=== PATIENT | female | born 2000 | race African-American/Black ===

== ENCOUNTER 2020-05-05 11:18 | Inpatient (IN) ==
[2020-05-05] MEDS ORDERED: oxyCODONE/ACETAMINOPHEN 5-325 MG TABLET PO ONE (11:52)
[2020-05-05 12:49] LABS: Mucus,Urine Occasional /LPF (Occasional); Squamous Epithelial Cell,Urine Occasional /HPF (0-10)
[2020-05-05 12:51] LABS: Bilirubin,Urine Negative (Negative); Blood, Urine Negative (Negative); Glucose,Urine (UA) Negative (Negative); Ketones,Urine 100 mg/dL (Negative); Nitrite,Urine Negative (Negative); Protein,Urine 100 MG/DL; Urine Appearance Clear (Clear); Urine Color Yellow (Yellow)
[2020-05-05] MEDS ORDERED: NIFEdipine 10 MG CAPSULE PO ONE (13:11)
[2020-05-05] MEDS ORDERED: LACTATED RINGERS 1,000 ML IV ONE (13:21)
[2020-05-05] MEDS ORDERED: BUTORPHANOL 2 MG/ML VIAL IV PRN (13:21)
[2020-05-05] MEDS ORDERED: LACTATED RINGERS 1,000 ML IV SCH (13:30)
[2020-05-05] MEDS ORDERED: AMPICILLIN 2,000 MG VIAL ONE (13:35)
[2020-05-05] MEDS ORDERED: AMPICILLIN INJ 2,000 MG in SODIUM CHLORIDE 0.9% 100 ML IV ONE (13:36)
[2020-05-05] MEDS ORDERED: MEPERIDINE 50 MG/1 ML VIAL IV ONE (13:54)
[2020-05-05] MEDS: ONDANSETRON 4 MG/2 ML VIAL IV PRN ×2 (13:58→18:41)
[2020-05-05 13:59] LABS: Basophils % 0.2 % (0.0-0.8); Hematocrit 35.9 VOL% (35.7-47.0); Hemoglobin 12.1 GM/DL (12.0-16.0); Immature Granulocytes % 0.6 %; Immature Granulocytes Absolute 0.07 #; Lymphocytes # 1.3 10*3/uL (1.4-4.0); Lymphocytes % 11.4 % (21.3-54.2); Mean Corpuscular HGB Conc 33.7 GM/DL (32-36); Mean Corpuscular Volume 95.2 FL (87-102); Mean Platelet Volume 11.9 FL (9.6-12.0); Monocytes % 6.5 % (1.7-12.7); Neutrophils % 81.3 % (38.7-73.9); Platelet Count 161 T/CUMM (130-400); Red Blood Count 3.77 MC/CUMM (3.8-5.5); Red Cell Distribution Width 12.6 % (9.3-17.3); White Blood Count 11.1 T/CUMM (4-12)
[2020-05-05] MEDS ORDERED: fentaNYL 2 MCG/ROPIV 0.2% EPID 100 ML EPIDURAL SCH (14:00)
[2020-05-05] MEDS ORDERED: NALOXONE 0.4 MG/ML VIAL IV PRN (14:00)
[2020-05-05] MEDS ORDERED: ePHEDrine 50 MG/ML VIAL IV PRN (14:00)
[2020-05-05] MEDS ORDERED: CITRIC ACID/SODIUM CITRATE 30 ML UDCUP PO ONE (14:01)
[2020-05-05] MEDS ORDERED: FAMOTIDINE 20 MG/2 ML VIAL IV ONE ×2 (14:01→14:03)
[2020-05-05 14:16] LABS: Band Neutrophils 2 % (0-10); Lymphocytes 10 % (20-55); Platelet Estimate Adequate; Segmented Neutrophils 83 % (50-85); Total Cells Counted 100
[2020-05-05] MEDS ORDERED: OXYTOCIN/LR 20 UNIT/1,000 ML BAG IV ONE ×2 (15:13→17:54)
[2020-05-05] MEDS ORDERED: OXYTOCIN/LR 20 UNIT/1,000 ML BAG IV SCH (16:00)
[2020-05-05 16:28] LABS: Bilirubin,Urine Negative (Negative); Blood, Urine Negative (Negative); Glucose,Urine (UA) 50 mg/dL (Negative); Ketones,Urine 20 mg/dL (Negative); Mucus,Urine Occasional /LPF (Occasional); Nitrite,Urine Negative (Negative); Protein,Urine 30 MG/DL; Squamous Epithelial Cell,Urine Occasional /HPF (0-10); Urine Appearance CLEAR (Clear); Urine Color Yellow (Yellow); Urine Specific Gravity 1.029 (1.001-1.035)
[2020-05-05] MEDS ORDERED: TRANEXAMIC ACID 1,000 MG/10 ML VIAL ONE (17:00)
[2020-05-05] MEDS ORDERED: miSOPROStoL 200 MCG TABLET ONE (17:00)
[2020-05-05] MEDS ORDERED: METHYLERGONOVINE 0.2 MG/1 ML AMP ONE (17:01)
[2020-05-05] MEDS ORDERED: CARBOPROST TROMETHAMINE 250 MCG/ML AMP IM ONE (17:01)
[2020-05-05 17:29] LABS: Cord Arterial Blood HCO3 22.7 MMOL/L
[2020-05-05 17:32] LABS: Cord Venous Blood HCO3 24.1 MMOL/L; Cord Venous Blood PCO2 43.6 MMHG
[2020-05-05] MEDS ORDERED: AMPICILLIN INJ 1,000 MG in SODIUM CHLORIDE 0.9% 100 ML IV SCH (17:36)
[2020-05-05] MEDS ORDERED: ONDANSETRON 4 MG/2 ML VIAL IV PRN (17:54)
[2020-05-05] MEDS ORDERED: BISACODYL 10 MG SUPP RECTAL PRN (17:54)
[2020-05-05] MEDS ORDERED: WITCH HAZEL PADS 100/JAR TOP PRN (17:54)
[2020-05-05] MEDS ORDERED: MEASLES/MUMPS/RUBELLA VACCINE 0.5 ML VIAL SUBCUT ONE (17:54)
[2020-05-05] MEDS ORDERED: oxyCODONE/ACETAMINOPHEN 5-325 MG TABLET PO PRN (17:54)
[2020-05-05] MEDS ORDERED: HYDROCORTISONE 2.5% RECTAL CREAM 30 GM TUBE TOP PRN (17:54)
[2020-05-05] MEDS ORDERED: ACETAMINOPHEN 325 MG TABLET PO PRN (17:54)
[2020-05-05] MEDS ORDERED: DOCUSATE/SENNA 50-8.6 MG TABLET PO PRN (17:54)
[2020-05-05] MEDS ORDERED: RHO(D) IMMUNE GLOBULIN 300 MCG SYRINGE IM ONE (17:54)
[2020-05-05] MEDS ORDERED: BENZOCAINE 20%/MENTHOL 0.5% SPRAY 56 GM CAN TOP PRN (17:54)
[2020-05-05] MEDS ORDERED: DIPH/TET/ACEL PERT BOOSTER VACCINE 0.5 ML VIAL IM ONE (17:54)
[2020-05-05] MEDS ORDERED: LANOLIN 50% CREAM 0.3 OZ TUBE TOP PRN (17:54)
[2020-05-05] MEDS ORDERED: LABETALOL 100 MG TABLET PO ONE (19:47)
[2020-05-05] MEDS: IBUPROFEN 800 MG TABLET PO PRN (21:07)
[2020-05-05] MEDS: DOCUSATE SODIUM 100 MG CAPSULE PO SCH (21:07)
[2020-05-06] MEDS: IBUPROFEN 800 MG TABLET PO PRN ×3 (02:49→16:05)
[2020-05-06 05:56] LABS: Basophils % 0.2 % (0.0-0.8); Eosinophils % 0.2 % (0.00-10.9); Hematocrit 31.5 VOL% (35.7-47.0); Immature Granulocytes % 0.5 %; Immature Granulocytes Absolute 0.07 #; Lymphocytes # 2.2 10*3/uL (1.4-4.0); Lymphocytes % 15.3 % (21.3-54.2); Mean Corpuscular HGB Conc 34.9 GM/DL (32-36); Mean Corpuscular Volume 92.6 FL (87-102); Mean Platelet Volume 11.9 FL (9.6-12.0); Monocytes % 11.1 % (1.7-12.7); Neutrophils % 72.7 % (38.7-73.9); Platelet Count 144 T/CUMM (130-400); Red Cell Distribution Width 12.5 % (9.3-17.3); White Blood Count 14.5 T/CUMM (4-12)
[2020-05-06 06:26] LABS: Burr Cells Slight; Eosinophils 1 % (0-10); Hypochromasia 1+; Lymphocytes 18 % (20-55); Microcytosis 1+; Nucleated Red Blood Cells 2 (0-5); Ovalocytes Slight; Platelet Estimate Adequate; Segmented Neutrophils 74 % (50-85); Total Cells Counted 100
[2020-05-06] MEDS: DOCUSATE SODIUM 100 MG CAPSULE PO SCH ×2 (09:25→21:21)
[2020-05-06] MEDS: oxyCODONE/ACETAMINOPHEN 5-325 MG TABLET PO PRN ×2 (09:25→16:05)
[2020-05-07] MEDS: DOCUSATE SODIUM 100 MG CAPSULE PO SCH (08:32)
[2020-05-07] MEDS: IBUPROFEN 800 MG TABLET PO PRN (10:48)
[2020-05-07 12:26] VITALS: BP 129/80
== END 2020-05-07 13:35 | disposition home or self-care (01) | DRG 560 ==
LOC: N.LDOUT 11:18 → N.LD 11:23 → N.OB 20:06
PROVIDERS: ADMIT Obstetrics & Gynecology; ATTEND Obstetrics & Gynecology